=== PATIENT | male | born 1980 | race Caucasian/White ===

== ENCOUNTER → 2021-07-30 | Day surgery (SDC) | payer OTHER ==
[~2021-07-30] VITALS: Ht 175.3 cm; Wt 100.0 kg
[~2021-07-30] MED LIST: CETI10TA74 PO; LIDOCAINE 1%/EPI 1:100,000 20 ML VIAL. INJ ONE; NEOMY/BACITR/POLYMYXIN OINT PACKET. TP ONE
[2021-07-30 08:40] VITALS: BP 143/96
--- NOTE | 2021-07-30 09:55 | PDOC4 ---
OPERATIVE NOTE Date: Date: Jul 30, 2021 Pre-Op Diagnosis: Right lateral brow mass Post-Op Diagnosis: Same Procedure Performed: Excision right lateral brow mass, 2.2 x 1.8 x 0.5 cm, CPT 95539 Surgeon: Yanira Zuniga MD Anesthesia Type: Local anesthesia Blood Loss: 5 mL Specimans Obtained: Right lateral brow lipoma Findings: Lipomatous mass of right lateral brow Complications: None Operative Note: Informed consent was taken in the periorperative holding area. The risks of bleeding, infection, bruising, hematoma, seroma, contour deformity, incomplete removal, need for revision procedures was discussed with the patient. He u nderstood, agreed, and desired to proceed. The patient was taken to the procedure room and laid on the table in a supine position. The correct site and procedure was confirmed with the patient. The right lateral brow was anesthetized with 1% lidocaine with epinephrine and the area was prepped with chloroprep. A 2.5 cm incision was made extending into the subcutaneous tissues, from the right lateral brow to the medial half of the mass using a #15 scalpel. A hemostat was used to gently spread the subcutaneous tissues until the capsule of the lipoma was reached above the fascia. This capsule was opened with scissors and the lipoma was grasped with Vani clamps. The lipoma was dissected from the surrounding subcutaneous tissues and fascial base. No additional margins were obtained. Hemostasis was achieved with cautery. The skin was closed with 4-0 Nylon suture with inclusion of the deep tissues to close the space in a 3 point suture. Antibiotic ointment was applied. The patient tolerated the procedure well. YANIRA ZUNIGA MD Jul 30, 2021 09:55
--- NOTE | 2021-08-03 13:07 | PATHOLOGY ---
[facility] Accession Number: [id number] . 01 Material submitted: . brow - RIGHT LATERAL BROW LIPOMA. Modifiers: right, lateral . 02 Diagnosis: Soft tissue "right lateral brow", excision: - Lobulated fibroadipose tissue, consistent with fibrolipoma. - Negative for malignancy. (MLK:pit; 08/01/2021) QTP 08/01/2021 1416 Local . 02 Electronically signed: . Yenny Mccullough MD, Pathologist NPI- [id number] . 01 Gross description: . Fixative: Formalin Labeled: Right lateral brow lipoma Specimen received: Multiple segments of light valdes-yellow lobulated tissue Dimensions: 2.2 x 1.8 x 0.5 cm External surface: Roughened Cut surface: Pale yellow, lobulated and glistening . Energy Control Officer sections are submitted in A1. ([facility]; 07/31/2021) NRI/NRI 07/31/2021 1544 Local . 02 Pathologist provided ICD-10: D17.0 . 02 CPT . 551269 Specimen Comment: A courtesy copy of this report has been sent to [phone], [phone] Specimen Comment: [id number] Specimen Comment: Report sent to / DR SHOEMAKER Performed at: 01 [facility] [address], [place] [id number] MD Alejandro Oliveros MD Phone: [phone] Performed at: 02 [facility] [address] [place], [place] [id number] MD Tyler Leon MD Phone: [phone]
--- NOTE | 2021-08-13 11:41 | PDOC1 ---
H & P. DATE OF SERVICE: DATE: 07/30/21 TIME: 10:40 HPI: Mass of right lateral brow ROS: Constitutional: Denies fever, fatigue, chills HEENT: Denies sore throat, vision changes Cardio: Denies chest pain, dyspnea with exertion, syncope, palpitations, edema Pulmonary: Denies shortness of breath, cough, wheezing GI: Denies nausea, vomiting, diarrhea, constipation : Denies dysuria, frequency, urgency, incontinence Skin: Denies new lesions Neuro: Denies weakness, paresthesias ED COURSE: NA PMH: Noncontributory FAMILY HX: Noncontributory SOCIAL HX: Noncontributory SURGICAL HX: Noncontributory MEDS: Reviewed and reconciled ALLERGIES: Reviewed PE: Alert, oriented, no acute distress EOMI, sclera non-icteric Neck supple RRR, no murmur CTAB, no wheezes, crackles or rhonchi Soft, NT, ND, normal bowel sounds, no rebound, guarding. Negative Alvarez's sign. No edema, cyanosis. Normal capillary refill. Calm, cooperative, mood/affect within normal limits ASSESSMENT & PLAN: Right lateral brow mass We will proceed with excision of right lateral brow mass Justifications for Admission Other Justification CARLITA ZUNIGA MD Aug 13, 2021 11:41
== END | disposition home or self-care (01) ==
LOC: SURG 08:18
PROVIDERS: ATTEND Plastic Surgery
DX: R22.0 Localized swelling, mass and lump, head (principal); D17.0 Benign lipomatous neoplasm of skin and subcutaneous tissue of head, face and neck; Z79.899 Other long term (current) drug therapy; Z72.89 Other problems related to lifestyle
CPT/HCPCS: 21012; 88304; J3490